=== PATIENT | female | born 2000 | race Caucasian/White ===

== ENCOUNTER 2023-05-31 11:28 | Day surgery (SDC) | payer OTHER ==
[2023-05-30 12:26] VITALS: BMI 25.6
[2023-05-31] MEDS ORDERED: fentaNYL PF 100 MCG/2 ML SYRINGE ONE (12:42)
[2023-05-31] MEDS ORDERED: Ondansetron PF 4 MG/2 ML Vial ONE ×2 (12:42→13:38)
[2023-05-31] MEDS ORDERED: Lidocaine 1% PF 5 ML VIAL ONE ×2 (12:42→13:38)
[2023-05-31] MEDS ORDERED: Dexamethasone 4 mg/ml Vial ONE (12:42)
[2023-05-31] MEDS ORDERED: Midazolam HCl 2 mg/2 ml Vial ONE (12:42)
[2023-05-31] MEDS ORDERED: PROPOFOL 20 ML ONE (12:42)
[2023-05-31] MEDS ORDERED: Lidocaine 1% (PF) 30 ML VIAL ONE (13:02)
[2023-05-31] MEDS ORDERED: Bupivacaine 0.25% HCL 30 ML VIAL ONE (13:02)
[2023-05-31] MEDS ORDERED: Sodium Chloride 0.9% 100 ML ONE (13:30)
[2023-05-31] MEDS ORDERED: CEFAZOLIN 2 GM VIAL ONE (13:30)
[2023-05-31] MEDS ORDERED: PROPOFOL 200 MG/20 ML VIAL ONE (13:38)
[2023-05-31] MEDS ORDERED: Dexamethasone 20 MG/5 ML VIAL ONE (13:38)
[2023-05-31] MEDS ORDERED: fentaNYL 50 mcg/mL 1 mL Vial ONE ×2 (15:32→15:45)
[2023-05-31] MEDS ORDERED: HYDROcodone/Acetaminophen 5/325 mg Tablet ONE (16:28)
== END 2023-05-31 18:30 | disposition home or self-care (01) ==
LOC: SDC 11:28
PROVIDERS: ATTEND Surgery Surgery of the Hand
PROC: 0PSV04Z Reposition Left Finger Phalanx with Internal Fixation Device, Open Approach (ICD-10-PCS; principal; 2023-05-31)
DX: S62.613A Displaced fracture of proximal phalanx of left middle finger, initial encounter for closed fracture (principal); M20.092 Other deformity of left finger(s); X58.XXXA Exposure to other specified factors, initial encounter
CPT/HCPCS: C1713; J1100; J2001; J2250; J2405; J2704; J3010; J3490; S0020